=== PATIENT | female | born 1940 | race Caucasian/White ===

== ENCOUNTER 2021-07-29 19:48 | Inpatient (IN) | payer OTHER ==
[~2021-07-29] VITALS: Ht 170.2 cm; Wt 70.2 kg
[2021-07-29 19:53] VITALS: BP 79/47
[2021-07-29] MEDS ORDERED: NOREPINEPHRINE 8 MG/250ML KIT 250 ML IV ONE ×2 (20:00→20:02)
[2021-07-29] MEDS ORDERED: NOREPINEPHRINE 8 MG/250ML KIT 250 ML IV SCH (20:00)
[2021-07-29] MEDS ORDERED: PROPOFOL 100 ML IV SCH (20:00)
[2021-07-29] MEDS ORDERED: PROPOFOL 100 ML IV ONE (20:00)
[2021-07-29 20:23] LABS: Mean Corpuscular Volume 100.1 fL (80.0-100.0); White Blood Cell 7.7 10^3/uL (4.4-10.8)
[2021-07-29 20:24] LABS: Hematocrit 40.8 % (36.0-46.0); Hemoglobin 12.8 g/dL (12.2-16.2); Mean Corpuscular Hemoglobin 31.4 pg (28.0-32.0); Mean Corpuscular Hgb Conc. 31.4 g/dL (32.0-36.0); Red Blood Cells 4.07 10^6/uL (4.0-5.20); Red Cell Distribution Width 14.3 % (11.8-14.3)
[2021-07-29 20:28] LABS: Basophils % (manual) 0 (0.0-2.0); Blast Cells 0; Metamyelocytes % 0; Myelocytes % 0; Promyelocytes % 0; Reactive Lymphocytes 0
[2021-07-29 20:30] LABS: Albumin 2.1 g/dL (3.4-5.0); BUN/Creatinine Ratio 11.3; Calcium 8.6 mg/dL (8.5-10.1); Potassium 3.9 mmol/L (3.5-5.1)
[2021-07-29] MEDS: PROPOFOL 100 ML IV SCH (20:30)
[2021-07-29 20:36] LABS: Bilirubin, Total 0.4 mg/dL (0.2-1.0); Total Protein 6.1 g/dL (6.4-8.2)
[2021-07-29 21:25] VITALS: BP 79/47
[2021-07-29] MEDS ORDERED: SODIUM CHLORIDE 0.9% 1,000 ML IV ONE (22:00)
[2021-07-29] MEDS ORDERED: PIPERACILLIN-TAZOB 3.375GM 100 ML IV ONE (22:00)
[2021-07-29 22:12] VITALS: BP 113/53
[2021-07-29 22:16] LABS: Lactic Acid w/Reflex 11.2 mmol/L (0.4-2.0)
[2021-07-29 22:24] LABS: Band Neutrophils % (manual) 4; Eosinophils % (manual) 1 (0-7); Lymphocytes % (manual) 38 (10.0-50.0); Monocytes % (manual) 7 (0-12)
[2021-07-29] MEDS ORDERED: MORPHINE SULFATE INJECTION 2 MG/ML SYRG IV PRN (22:30)
[2021-07-29] MEDS ORDERED: SODIUM BICARBONATE 8.4 % INJ 50ML VIAL IV ONE ×2 (22:30→23:47)
[2021-07-29] MEDS ORDERED: SODIUM BICARBONATE 50ML VIAL 100 ML in SOD CHL 0.45% 1,000 ML IV SCH (22:30)
[2021-07-29] MEDS ORDERED: ALBUTEROL SULF HFA 90MCG INH 200DOSE IN PRN (22:30)
[2021-07-29] MEDS ORDERED: NITROGLYCERIN 0.4 MG SL TAB SL PRN (22:30)
[2021-07-29] MEDS: NOREPINEPHRINE 8 MG/250ML KIT 250 ML IV SCH (22:30)
[2021-07-29] MEDS: cefTRIAXone 1GM/50ML D5W 50 ML IV SCH (23:16)
[2021-07-29] MEDS: MIDAZOLAM DRIP 50 mg/50mL 50 ML IV SCH (23:21)
[2021-07-30] VITALS (11 sets, daily range): BP systolic 97–138; BP diastolic 62–76
[2021-07-30] MEDS ORDERED: IOHEXOL 350 MG/ML 100ML IJ ONE (00:17)
[2021-07-30] MEDS ORDERED: VANCOMYCIN 1GM/250ML 250 ML IV ONE (01:00)
[2021-07-30] MEDS: MIDAZOLAM DRIP 50 mg/50mL 50 ML IV SCH (03:16)
[2021-07-30] MEDS: NOREPINEPHRINE 8 MG/250ML KIT 250 ML IV SCH ×2 (03:29→21:25)
[2021-07-30] MEDS: AZITHROMYCIN 500MG/ 250ML 250 ML IV SCH ×2 (03:30→23:21)
[2021-07-30 05:51] LABS: Hematocrit 37.5 % (36.0-46.0); Hemoglobin 11.9 g/dL (12.2-16.2); Mean Corpuscular Hemoglobin 30.7 pg (28.0-32.0); Mean Corpuscular Hgb Conc. 31.7 g/dL (32.0-36.0); Mean Corpuscular Volume 96.7 fL (80.0-100.0); Red Blood Cells 3.88 10^6/uL (4.0-5.20); Red Cell Distribution Width 13.9 % (11.8-14.3); White Blood Cell 24.1 10^3/uL (4.4-10.8)
[2021-07-30 06:01] LABS: Basophils % (manual) 0 (0.0-2.0); Blast Cells 0; Eosinophils % (manual) 0 (0-7); Metamyelocytes % 0; Myelocytes % 0; Promyelocytes % 0; Reactive Lymphocytes 0
[2021-07-30] MEDS ORDERED: ENOXAPARIN SOD 100 MG/1 ML SYRINGE SC ONE (06:45)
[2021-07-30] MEDS ORDERED: SODIUM CHLORIDE 0.9% 1,000 ML IV SCH (06:45)
[2021-07-30 07:06] LABS: Urine WBC None Seen /hpf (0 - 5)
[2021-07-30 07:25] LABS: Urine Bacteria NONE SEEN /hpf (None Seen); Urine Blood 3+ /uL (Negative); Urine Mucus FEW (None Seen)
[2021-07-30 08:28] LABS: Albumin 1.6 g/dL (3.4-5.0); Calcium 7.1 mg/dL (8.5-10.1); Potassium 3.5 mmol/L (3.5-5.1)
[2021-07-30 08:33] LABS: BUN/Creatinine Ratio 14.5; Bilirubin, Total 1.2 mg/dL (0.2-1.0); Total Protein 5.2 g/dL (6.4-8.2)
[2021-07-30 09:06] LABS: Band Neutrophils % (manual) 16; Lymphocytes % (manual) 4 (10.0-50.0); Monocytes % (manual) 2 (0-12)
[2021-07-30] MEDS: CHOLECALCIFEROL (VITD3) 2,000 UNIT CAP/TAB PO SCH (10:00)
[2021-07-30] MEDS: ASCORBIC ACID 1,000 MG TAB PO SCH (10:00)
[2021-07-30] MEDS ORDERED: ENOXAPARIN SOD 40 MG/0.4 ML SYRINGE SC SCH (10:00)
[2021-07-30] MEDS: ASPirin 81 mg TAB PO SCH (11:30)
[2021-07-30] MEDS: PANTOPRAZOLE 40 MG/10 ML VIAL INJ IV SCH (11:32)
[2021-07-30] MEDS: DexAMETHasone SOD PHOS 10MG/1ML VIAL INJ IV SCH (11:32)
[2021-07-30] MEDS: ENOXAPARIN SOD 100 MG/1 ML SYRINGE SC SCH ×2 (18:29→22:42)
[2021-07-30] MEDS: FUROSEMIDE 20 MG/2 ML VIAL IV SCH (18:29)
[2021-07-30] MEDS: PROPOFOL 100 ML IV SCH (22:15)
[2021-07-30] MEDS: ATORVASTATIN 20 MG TAB PO SCH (22:42)
[2021-07-30] MEDS: cefTRIAXone 1GM/50ML D5W 50 ML IV SCH (23:20)
[2021-07-31] VITALS (9 sets, daily range): BP systolic 99–111; BP diastolic 44–64
[2021-07-31] MEDS: MIDAZOLAM DRIP 50 mg/50mL 50 ML IV SCH ×2 (01:00→19:56)
[2021-07-31 05:08] LABS: Basophils # (auto) 0 10 ^3/uL (0-0.2); Basophils % (auto) 0.2 % (0.0-2.0); Eosinophils # (auto) 0 10 ^3/uL (0-0.8); Hematocrit 31.1 % (36.0-46.0); Hemoglobin 10.5 g/dL (12.2-16.2); Lymphocytes # (auto) 0.7 10 ^3/uL (0.4-5.4); Lymphocytes % (auto) 3.6 % (10.0-50.0); Mean Corpuscular Hemoglobin 31.2 pg (28.0-32.0); Mean Corpuscular Hgb Conc. 33.8 g/dL (32.0-36.0); Mean Corpuscular Volume 92.5 fL (80.0-100.0); Monocytes # (auto) 1.2 10 ^3/uL (0-1.3); Monocytes % (auto) 6.6 % (0.0-12.0); Neutrophils # (auto) 16.2 10 ^3/uL (1.6-8.6); Neutrophils % (auto) 89.6 % (37.0-80.0); Red Blood Cells 3.36 10^6/uL (4.0-5.20); Red Cell Distribution Width 14.1 % (11.8-14.3); White Blood Cell 18.1 10^3/uL (4.4-10.8)
[2021-07-31] MEDS: FUROSEMIDE 20 MG/2 ML VIAL IV SCH (06:04)
[2021-07-31 06:54] LABS: Albumin 1.5 g/dL (3.4-5.0); Calcium 6.1 mg/dL (8.5-10.1); Potassium 3.1 mmol/L (3.5-5.1)
[2021-07-31 06:59] LABS: BUN/Creatinine Ratio 11.9; Bilirubin, Total 0.4 mg/dL (0.2-1.0); Total Protein 4.5 g/dL (6.4-8.2)
[2021-07-31] MEDS: PANTOPRAZOLE 40 MG/10 ML VIAL INJ IV SCH (10:00)
[2021-07-31] MEDS: DexAMETHasone SOD PHOS 10MG/1ML VIAL INJ IV SCH (10:00)
[2021-07-31] MEDS: ENOXAPARIN SOD 80 MG/0.8ML SYRINGE SC SCH (10:00)
[2021-07-31] MEDS: ASCORBIC ACID 1,000 MG TAB PO SCH (10:00)
[2021-07-31] MEDS: ASPirin 81 mg TAB PO SCH (10:00)
[2021-07-31] MEDS: CHOLECALCIFEROL (VITD3) 2,000 UNIT CAP/TAB PO SCH (10:00)
[2021-07-31] MEDS ORDERED: HYDR200T36 PO (11:38)
[2021-07-31] MEDS ORDERED: POM PO (11:38)
[2021-07-31] MEDS ORDERED: CALCIUM GLUC 1,000mg/50ml-NS 50 ML IV ONE (12:00)
[2021-07-31] MEDS: POTASSIUM CHL 20MEQ/100ML 100 ML IV SCH ×2 (12:00→15:00)
[2021-07-31] MEDS: LACTATED RINGER'S 1,000 ML IV SCH (13:15)
[2021-07-31] MEDS: NOREPINEPHRINE 8 MG/250ML KIT 250 ML IV SCH (22:15)
[2021-07-31] MEDS: PROPOFOL 100 ML IV SCH (22:15)
[2021-07-31] MEDS: cefTRIAXone 1GM/50ML D5W 50 ML IV SCH (23:03)
[2021-07-31] MEDS: ATORVASTATIN 20 MG TAB PO SCH (23:03)
[2021-07-31] MEDS: AZITHROMYCIN 500MG/ 250ML 250 ML IV SCH (23:03)
[2021-08-01] VITALS (17 sets, daily range): BP systolic 101–142; BP diastolic 55–77
[2021-08-01] MEDS: ALBUMIN 25% 100 ML IV SCH ×3 (01:01→15:00)
[2021-08-01] MEDS: MIDAZOLAM DRIP 50 mg/50mL 50 ML IV SCH ×2 (01:20→06:35)
[2021-08-01] MEDS: LACTATED RINGER'S 1,000 ML IV SCH ×2 (02:35→14:00)
[2021-08-01 05:56] LABS: Eosinophils # (auto) 0 10 ^3/uL (0-0.8); Lymphocytes # (auto) 0.3 10 ^3/uL (0.4-5.4); Lymphocytes % (auto) 2.9 % (10.0-50.0)
[2021-08-01 06:00] LABS: Basophils # (auto) 0 10 ^3/uL (0-0.2); Basophils % (auto) 0.4 % (0.0-2.0); Hematocrit 18.4 % (36.0-46.0); Mean Corpuscular Hemoglobin 32.7 pg (28.0-32.0); Mean Corpuscular Volume 91.1 fL (80.0-100.0); Monocytes # (auto) 0.4 10 ^3/uL (0-1.3); Monocytes % (auto) 4.1 % (0.0-12.0); Neutrophils # (auto) 8.9 10 ^3/uL (1.6-8.6); Neutrophils % (auto) 92.6 % (37.0-80.0); Red Blood Cells 2.02 10^6/uL (4.0-5.20); Red Cell Distribution Width 13.9 % (11.8-14.3); White Blood Cell 9.7 10^3/uL (4.4-10.8)
[2021-08-01 06:11] LABS: Albumin 1.8 g/dL (3.4-5.0); BUN/Creatinine Ratio 12.3; Calcium 6.1 mg/dL (8.5-10.1); Potassium 3.6 mmol/L (3.5-5.1)
[2021-08-01 06:13] LABS: Hemoglobin 6.6 g/dL (12.2-16.2)
[2021-08-01 06:14] LABS: Bilirubin, Total 0.4 mg/dL (0.2-1.0); Total Protein 4.4 g/dL (6.4-8.2)
[2021-08-01] MEDS: PANTOPRAZOLE 40 MG/10 ML VIAL INJ IV SCH (10:56)
[2021-08-01] MEDS: DexAMETHasone SOD PHOS 10MG/1ML VIAL INJ IV SCH (10:56)
[2021-08-01] MEDS: ASPirin 81 mg TAB PO SCH (10:57)
[2021-08-01] MEDS: ASCORBIC ACID 1,000 MG TAB PO SCH (10:58)
[2021-08-01] MEDS: ENOXAPARIN SOD 80 MG/0.8ML SYRINGE SC SCH (10:58)
[2021-08-01] MEDS: CHOLECALCIFEROL (VITD3) 2,000 UNIT CAP/TAB PO SCH (10:58)
[2021-08-01 15:11] LABS: Basophils # (auto) 0 10 ^3/uL (0-0.2); Eosinophils # (auto) 0 10 ^3/uL (0-0.8); Monocytes # (auto) 0.3 10 ^3/uL (0-1.3); Red Cell Distribution Width 14.2 % (11.8-14.3)
[2021-08-01 15:12] LABS: Basophils % (auto) 0.2 % (0.0-2.0); Hematocrit 22.4 % (36.0-46.0); Hemoglobin 7.8 g/dL (12.2-16.2); Lymphocytes # (auto) 0.2 10 ^3/uL (0.4-5.4); Lymphocytes % (auto) 2.6 % (10.0-50.0); Mean Corpuscular Hemoglobin 31.1 pg (28.0-32.0); Mean Corpuscular Hgb Conc. 34.6 g/dL (32.0-36.0); Mean Corpuscular Volume 90.1 fL (80.0-100.0); Monocytes % (auto) 3.4 % (0.0-12.0); Neutrophils # (auto) 8.7 10 ^3/uL (1.6-8.6); Neutrophils % (auto) 93.8 % (37.0-80.0); Nucleated Red Blood Cells % 0.3 %; Red Blood Cells 2.49 10^6/uL (4.0-5.20); White Blood Cell 9.3 10^3/uL (4.4-10.8)
[2021-08-01] MEDS ORDERED: FUROSEMIDE 100 MG/10ML VIAL IV ONE (16:15)
[2021-08-01] MEDS: NOREPINEPHRINE 8 MG/250ML KIT 250 ML IV SCH (22:15)
[2021-08-01] MEDS: PROPOFOL 100 ML IV SCH (22:15)
[2021-08-01] MEDS: ATORVASTATIN 20 MG TAB PO SCH (22:40)
[2021-08-01] MEDS: cefTRIAXone 1GM/50ML D5W 50 ML IV SCH (22:40)
[2021-08-01 23:10] LABS: INR 1.23 (0.9-1.15)
[2021-08-01] MEDS: AZITHROMYCIN 500MG/ 250ML 250 ML IV SCH (23:37)
[2021-08-02] VITALS (51 sets, daily range): BP systolic 92–141; BP diastolic 48–72
[2021-08-02] MEDS: MIDAZOLAM DRIP 50 mg/50mL 50 ML IV SCH (05:00)
[2021-08-02] MEDS: LACTATED RINGER'S 1,000 ML IV SCH ×2 (05:26→18:35)
[2021-08-02 07:53] LABS: Basophils # (auto) 0.1 10 ^3/uL (0-0.2); Eosinophils # (auto) 0 10 ^3/uL (0-0.8); Lymphocytes # (auto) 0.3 10 ^3/uL (0.4-5.4); Monocytes # (auto) 0.4 10 ^3/uL (0-1.3); Monocytes % (auto) 4.1 % (0.0-12.0); Neutrophils % (auto) 91.9 % (37.0-80.0)
[2021-08-02 07:55] LABS: Basophils % (auto) 0.8 % (0.0-2.0); Hematocrit 23.3 % (36.0-46.0); Hemoglobin 8.3 g/dL (12.2-16.2); Lymphocytes % (auto) 3.2 % (10.0-50.0); Mean Corpuscular Hemoglobin 31.8 pg (28.0-32.0); Mean Corpuscular Hgb Conc. 35.4 g/dL (32.0-36.0); Mean Corpuscular Volume 89.8 fL (80.0-100.0); Neutrophils # (auto) 9.7 10 ^3/uL (1.6-8.6); Red Cell Distribution Width 14.9 % (11.8-14.3); White Blood Cell 10.6 10^3/uL (4.4-10.8)
[2021-08-02 08:09] LABS: Albumin 2.3 g/dL (3.4-5.0); Calcium 6.7 mg/dL (8.5-10.1); Potassium 3.2 mmol/L (3.5-5.1)
[2021-08-02 08:18] LABS: BUN/Creatinine Ratio 14.2; Bilirubin, Total 0.5 mg/dL (0.2-1.0); CRP High Sensitivity 6.81 mg/dL (< 0.3); Total Protein 4.9 g/dL (6.4-8.2)
[2021-08-02] MEDS: ASPirin 81 mg TAB PO SCH (10:29)
[2021-08-02] MEDS: DexAMETHasone SOD PHOS 10MG/1ML VIAL INJ IV SCH (10:29)
[2021-08-02] MEDS: CHOLECALCIFEROL (VITD3) 2,000 UNIT CAP/TAB PO SCH (10:29)
[2021-08-02] MEDS: PANTOPRAZOLE 40 MG/10 ML VIAL INJ IV SCH (10:29)
[2021-08-02] MEDS: ASCORBIC ACID 1,000 MG TAB PO SCH (10:29)
[2021-08-02] MEDS: POTASSIUM CHL 20MEQ/100ML 100 ML IV SCH ×2 (15:06→17:26)
[2021-08-02] MEDS ORDERED: ESCI-34 PO (15:51)
[2021-08-02] MEDS: cefTRIAXone 1GM/50ML D5W 50 ML IV SCH (21:28)
[2021-08-02] MEDS: ATORVASTATIN 20 MG TAB PO SCH (21:28)
[2021-08-02] MEDS: NOREPINEPHRINE 8 MG/250ML KIT 250 ML IV SCH (22:15)
[2021-08-02] MEDS: PROPOFOL 100 ML IV SCH (22:15)
[2021-08-02] MEDS: AZITHROMYCIN 500MG/ 250ML 250 ML IV SCH (22:57)
[2021-08-03] VITALS (58 sets, daily range): BP systolic 94–150; BP diastolic 50–81
[2021-08-03] MEDS: ASPirin 81 mg TAB PO SCH (09:40)
[2021-08-03] MEDS: PANTOPRAZOLE 40 MG/10 ML VIAL INJ IV SCH (09:40)
[2021-08-03] MEDS: CHOLECALCIFEROL (VITD3) 2,000 UNIT CAP/TAB PO SCH (09:41)
[2021-08-03] MEDS: ASCORBIC ACID 1,000 MG TAB PO SCH (09:41)
[2021-08-03] MEDS: DexAMETHasone SOD PHOS 10MG/1ML VIAL INJ IV SCH (09:42)
[2021-08-03] MEDS ORDERED: POTASSIUM CHL 20MEQ/100ML 100 ML IV SCH (12:00)
[2021-08-03] MEDS ORDERED: FUROSEMIDE 40 MG/4 ML VIAL IV ONE (13:30)
[2021-08-03 14:37] LABS: Basophils # (auto) 0 10 ^3/uL (0-0.2); Eosinophils # (auto) 0 10 ^3/uL (0-0.8); Lymphocytes # (auto) 0.3 10 ^3/uL (0.4-5.4); Lymphocytes % (auto) 2.8 % (10.0-50.0); Monocytes # (auto) 0.4 10 ^3/uL (0-1.3)
[2021-08-03 14:39] LABS: Basophils % (auto) 0.2 % (0.0-2.0); Hematocrit 22.2 % (36.0-46.0); Hemoglobin 7.7 g/dL (12.2-16.2); Mean Corpuscular Hemoglobin 31.5 pg (28.0-32.0); Mean Corpuscular Hgb Conc. 34.9 g/dL (32.0-36.0); Mean Corpuscular Volume 90.2 fL (80.0-100.0); Monocytes % (auto) 4.4 % (0.0-12.0); Neutrophils % (auto) 92.6 % (37.0-80.0); Nucleated Red Blood Cells % 0.1 %; Red Blood Cells 2.46 10^6/uL (4.0-5.20); Red Cell Distribution Width 15.2 % (11.8-14.3); White Blood Cell 9.7 10^3/uL (4.4-10.8)
[2021-08-03 15:00] LABS: BUN/Creatinine Ratio 17.5; Calcium 6.8 mg/dL (8.5-10.1); Potassium 3.9 mmol/L (3.5-5.1)
[2021-08-03] MEDS ORDERED: CLINIMIX PER PHARMACY 0 ML IV SCH (16:00)
[2021-08-03] MEDS: LACTATED RINGER'S 1,000 ML IV SCH ×3 (17:15→21:15)
[2021-08-03] MEDS: InsuLIN REG 1unit/0.01ml Soln (100units/ml) SC SCH (18:00)
[2021-08-03] MEDS ORDERED: DEXTROSE (50%) 50ML SYRG IV SCH (18:00)
[2021-08-03] MEDS: ACCU-CHEK COMFORT CURVE STRIP VI SCH (18:13)
[2021-08-03] MEDS ORDERED: AMINO ACID INFUSION IN D10W 1,000 ML IV NR (20:00)
[2021-08-03] MEDS: ONDANSETRON HCL 4 MG/2 ML VIAL IV PRN (21:07)
[2021-08-03] MEDS: NOREPINEPHRINE 8 MG/250ML KIT 250 ML IV SCH (22:15)
[2021-08-03] MEDS: PROPOFOL 100 ML IV SCH (22:15)
[2021-08-03] MEDS: cefTRIAXone 1GM/50ML D5W 50 ML IV SCH (22:45)
[2021-08-03] MEDS: MIDAZOLAM DRIP 50 mg/50mL 50 ML IV SCH (23:15)
[2021-08-03] MEDS: ATORVASTATIN 20 MG TAB PO SCH (23:59)
[2021-08-04] VITALS (59 sets, daily range): BP systolic 101–153; BP diastolic 55–89
[2021-08-04] MEDS: ONDANSETRON HCL 4 MG/2 ML VIAL IV PRN (04:45)
[2021-08-04 04:59] LABS: Potassium 3.6 mmol/L (3.5-5.1)
[2021-08-04 05:09] LABS: Albumin 2.3 g/dL (3.4-5.0); BUN/Creatinine Ratio 17.4; Bilirubin, Total 0.5 mg/dL (0.2-1.0); Calcium 7.3 mg/dL (8.5-10.1); Magnesium 1.8 mg/dL (1.6-2.6); Phosphorus 2.7 mg/dL (2.5-4.90); Pre Albumin 14.4 mg/dL (20.0-40.0); Total Protein 5.4 g/dL (6.4-8.2)
[2021-08-04] MEDS: InsuLIN REG 1unit/0.01ml Soln (100units/ml) SC SCH ×5 (05:50→23:50)
[2021-08-04] MEDS: ACCU-CHEK COMFORT CURVE STRIP VI SCH ×5 (05:50→23:50)
[2021-08-04] MEDS: LACTATED RINGER'S 1,000 ML IV SCH ×2 (06:06→20:29)
[2021-08-04 07:08] LABS: Basophils # (auto) 0 10 ^3/uL (0-0.2); Basophils % (auto) 0.1 % (0.0-2.0); Eosinophils # (auto) 0 10 ^3/uL (0-0.8); Mean Corpuscular Hemoglobin 31.3 pg (28.0-32.0)
[2021-08-04 07:11] LABS: Hematocrit 23.9 % (36.0-46.0); Hemoglobin 8.2 g/dL (12.2-16.2); Lymphocytes # (auto) 0.6 10 ^3/uL (0.4-5.4); Lymphocytes % (auto) 3.3 % (10.0-50.0); Mean Corpuscular Hgb Conc. 34.4 g/dL (32.0-36.0); Mean Corpuscular Volume 91.1 fL (80.0-100.0); Monocytes # (auto) 1.8 10 ^3/uL (0-1.3); Monocytes % (auto) 9.1 % (0.0-12.0); Neutrophils # (auto) 17.1 10 ^3/uL (1.6-8.6); Neutrophils % (auto) 87.5 % (37.0-80.0); Red Blood Cells 2.62 10^6/uL (4.0-5.20); Red Cell Distribution Width 15.1 % (11.8-14.3); White Blood Cell 19.5 10^3/uL (4.4-10.8)
[2021-08-04] MEDS: ASPirin 81 mg TAB PO SCH (10:00)
[2021-08-04] MEDS: PANTOPRAZOLE 40 MG/10 ML VIAL INJ IV SCH (10:29)
[2021-08-04] MEDS: CHOLECALCIFEROL (VITD3) 2,000 UNIT CAP/TAB PO SCH (10:29)
[2021-08-04] MEDS: DexAMETHasone SOD PHOS 10MG/1ML VIAL INJ IV SCH (10:29)
[2021-08-04] MEDS: ASCORBIC ACID 1,000 MG TAB PO SCH (10:29)
[2021-08-04] MEDS ORDERED: LACTULOSE 20Gm/30ML SOLN PO PRN (15:15)
[2021-08-04] MEDS ORDERED: AMINO ACID INFUSION IN D10W 1,000 ML IV NR (20:00)
[2021-08-04] MEDS: PROPOFOL 100 ML IV SCH (22:15)
[2021-08-04] MEDS: NOREPINEPHRINE 8 MG/250ML KIT 250 ML IV SCH (22:15)
[2021-08-04] MEDS: cefTRIAXone 1GM/50ML D5W 50 ML IV SCH (22:20)
[2021-08-04] MEDS: ATORVASTATIN 20 MG TAB PO SCH (22:20)
[2021-08-04] MEDS: MIDAZOLAM DRIP 50 mg/50mL 50 ML IV SCH (23:15)
[2021-08-05] VITALS (82 sets, daily range): BP systolic 111–170; BP diastolic 52–86
[2021-08-05 04:34] LABS: Basophils # (auto) 0 10 ^3/uL (0-0.2); Basophils % (auto) 0.1 % (0.0-2.0); Eosinophils # (auto) 0 10 ^3/uL (0-0.8); Lymphocytes # (auto) 0.5 10 ^3/uL (0.4-5.4)
[2021-08-05 04:36] LABS: Hematocrit 18.7 % (36.0-46.0); Lymphocytes % (auto) 4.3 % (10.0-50.0); Mean Corpuscular Hgb Conc. 33.9 g/dL (32.0-36.0); Mean Corpuscular Volume 91.5 fL (80.0-100.0); Monocytes # (auto) 0.8 10 ^3/uL (0-1.3); Monocytes % (auto) 7.1 % (0.0-12.0); Neutrophils # (auto) 9.8 10 ^3/uL (1.6-8.6); Neutrophils % (auto) 88.5 % (37.0-80.0); Red Blood Cells 2.05 10^6/uL (4.0-5.20); Red Cell Distribution Width 14.9 % (11.8-14.3); White Blood Cell 11.1 10^3/uL (4.4-10.8)
[2021-08-05 04:47] LABS: Hemoglobin 6.3 g/dL (12.2-16.2)
[2021-08-05 04:55] LABS: Potassium 3.4 mmol/L (3.5-5.1)
[2021-08-05 05:06] LABS: BUN/Creatinine Ratio 23.6; Bilirubin, Total 0.5 mg/dL (0.2-1.0); Calcium 7.3 mg/dL (8.5-10.1); Magnesium 1.6 mg/dL (1.6-2.6); Phosphorus 2.8 mg/dL (2.5-4.90); Total Protein 4.9 g/dL (6.4-8.2)
[2021-08-05] MEDS: InsuLIN REG 1unit/0.01ml Soln (100units/ml) SC SCH ×4 (06:00→23:37)
[2021-08-05] MEDS: ACCU-CHEK COMFORT CURVE STRIP VI SCH ×4 (06:24→23:37)
[2021-08-05] MEDS: POTASSIUM CHL 20MEQ/100ML 100 ML IV SCH ×2 (08:51→10:02)
[2021-08-05] MEDS: ASPirin 81 mg TAB PO SCH (10:00)
[2021-08-05] MEDS: CHOLECALCIFEROL (VITD3) 2,000 UNIT CAP/TAB PO SCH (10:02)
[2021-08-05] MEDS: ASCORBIC ACID 1,000 MG TAB PO SCH (10:03)
[2021-08-05] MEDS: DexAMETHasone SOD PHOS 10MG/1ML VIAL INJ IV SCH (10:03)
[2021-08-05] MEDS: PANTOPRAZOLE 40 MG/10 ML VIAL INJ IV SCH (10:03)
[2021-08-05] MEDS ORDERED: ALBUMIN 25% 100 ML IV ONE (11:15)
[2021-08-05] MEDS ORDERED: POTASSIUM EFFERVESENT TAB 25 MEQ GT ONE (11:15)
[2021-08-05] MEDS: LACTATED RINGER'S 1,000 ML IV SCH (11:57)
[2021-08-05] MEDS ORDERED: FUROSEMIDE 100 MG/10ML VIAL IV ONE (15:45)
[2021-08-05] MEDS ORDERED: AMINO ACID INFUSION IN D10W 1,000 ML IV NR (20:00)
[2021-08-05] MEDS: ATORVASTATIN 20 MG TAB PO SCH (22:00)
[2021-08-05] MEDS: NOREPINEPHRINE 8 MG/250ML KIT 250 ML IV SCH (22:15)
[2021-08-05] MEDS: PROPOFOL 100 ML IV SCH (22:15)
[2021-08-05] MEDS: cefTRIAXone 1GM/50ML D5W 50 ML IV SCH (22:45)
[2021-08-05] MEDS: IPRATROPIUM BROM 0.5 MG/2.5ML INH SOL NEB PRN (22:58)
[2021-08-05] MEDS: ALBUTEROL SULF 2.5 MG/0.5ML(0.5%) NEB SOLN NEB PRN (22:58)
[2021-08-05] MEDS: MIDAZOLAM DRIP 50 mg/50mL 50 ML IV SCH (23:15)
[2021-08-06] VITALS (91 sets, daily range): BP systolic 107–186; BP diastolic 59–95
[2021-08-06] MEDS: LACTATED RINGER'S 1,000 ML IV SCH ×2 (02:35→16:15)
[2021-08-06 04:52] LABS: Albumin 2.7 g/dL (3.4-5.0); Calcium 7.8 mg/dL (8.5-10.1); Magnesium 1.5 mg/dL (1.6-2.6); Potassium 3.4 mmol/L (3.5-5.1)
[2021-08-06 04:55] LABS: BUN/Creatinine Ratio 28.9; Bilirubin, Total 0.9 mg/dL (0.2-1.0); Total Protein 5.7 g/dL (6.4-8.2)
[2021-08-06 05:00] LABS: Basophils # (auto) 0 10 ^3/uL (0-0.2); Basophils % (auto) 0.1 % (0.0-2.0); Eosinophils # (auto) 0 10 ^3/uL (0-0.8); Hemoglobin 9.9 g/dL (12.2-16.2); Lymphocytes # (auto) 0.6 10 ^3/uL (0.4-5.4); Lymphocytes % (auto) 4.9 % (10.0-50.0); Mean Corpuscular Hemoglobin 30.8 pg (28.0-32.0); Mean Corpuscular Hgb Conc. 34.3 g/dL (32.0-36.0); Mean Corpuscular Volume 89.9 fL (80.0-100.0); Monocytes # (auto) 0.7 10 ^3/uL (0-1.3); Monocytes % (auto) 5.7 % (0.0-12.0); Neutrophils # (auto) 10.7 10 ^3/uL (1.6-8.6); Neutrophils % (auto) 89.3 % (37.0-80.0); Red Blood Cells 3.23 10^6/uL (4.0-5.20); Red Cell Distribution Width 14.9 % (11.8-14.3)
[2021-08-06] MEDS: InsuLIN REG 1unit/0.01ml Soln (100units/ml) SC SCH ×4 (05:38→23:45)
[2021-08-06] MEDS: ACCU-CHEK COMFORT CURVE STRIP VI SCH ×4 (05:38→23:44)
[2021-08-06] MEDS: ASPirin 81 mg TAB PO SCH (08:54)
[2021-08-06] MEDS ORDERED: POTASSIUM PHOSPHATE 22 MEQ in SODIUM CHL 0.9% 100 ML IV ONE (09:00)
[2021-08-06] MEDS: MAGNESIUM SULFATE 1GM/100ML 100 ML IV SCH ×2 (09:00→15:00)
[2021-08-06] MEDS: PANTOPRAZOLE 40 MG/10 ML VIAL INJ IV SCH (09:53)
[2021-08-06] MEDS: ASCORBIC ACID 1,000 MG TAB PO SCH (09:53)
[2021-08-06] MEDS: DexAMETHasone SOD PHOS 10MG/1ML VIAL INJ IV SCH (09:53)
[2021-08-06] MEDS: CHOLECALCIFEROL (VITD3) 2,000 UNIT CAP/TAB PO SCH (09:53)
[2021-08-06] MEDS ORDERED: MAGNESIUM SULFATE 1GM/100ML 100 ML IV ONE (15:34)
[2021-08-06] MEDS ORDERED: AMINO ACID INFUSION IN D10W 1,000 ML IV NR (20:00)
[2021-08-06] MEDS: PROPOFOL 100 ML IV SCH (22:15)
[2021-08-06] MEDS: NOREPINEPHRINE 8 MG/250ML KIT 250 ML IV SCH (22:15)
[2021-08-06] MEDS: cefTRIAXone 1GM/50ML D5W 50 ML IV SCH (22:45)
[2021-08-06] MEDS: ATORVASTATIN 20 MG TAB PO SCH (22:45)
[2021-08-06] MEDS: MIDAZOLAM DRIP 50 mg/50mL 50 ML IV SCH (23:15)
[2021-08-07] VITALS (34 sets, daily range): BP systolic 106–172; BP diastolic 60–91
[2021-08-07 04:27] LABS: Basophils # (auto) 0 10 ^3/uL (0-0.2); Basophils % (auto) 0.1 % (0.0-2.0); Eosinophils # (auto) 0 10 ^3/uL (0-0.8); Hematocrit 29.4 % (36.0-46.0); Hemoglobin 10.1 g/dL (12.2-16.2); Lymphocytes # (auto) 0.3 10 ^3/uL (0.4-5.4); Lymphocytes % (auto) 2.8 % (10.0-50.0); Mean Corpuscular Hemoglobin 30.7 pg (28.0-32.0); Mean Corpuscular Hgb Conc. 34.4 g/dL (32.0-36.0); Mean Corpuscular Volume 89.2 fL (80.0-100.0); Monocytes # (auto) 0.7 10 ^3/uL (0-1.3); Monocytes % (auto) 5.8 % (0.0-12.0); Neutrophils # (auto) 11.2 10 ^3/uL (1.6-8.6); Neutrophils % (auto) 91.3 % (37.0-80.0); Red Blood Cells 3.29 10^6/uL (4.0-5.20); Red Cell Distribution Width 14.8 % (11.8-14.3); White Blood Cell 12.3 10^3/uL (4.4-10.8)
[2021-08-07 04:55] LABS: Albumin 2.4 g/dL (3.4-5.0); Calcium 7.6 mg/dL (8.5-10.1); Potassium 3.6 mmol/L (3.5-5.1)
[2021-08-07 04:59] LABS: BUN/Creatinine Ratio 34.4; Bilirubin, Total 0.8 mg/dL (0.2-1.0); Phosphorus 2.8 mg/dL (2.5-4.90); Total Protein 5.6 g/dL (6.4-8.2)
[2021-08-07] MEDS: InsuLIN REG 1unit/0.01ml Soln (100units/ml) SC SCH ×4 (05:56→23:33)
[2021-08-07] MEDS: ACCU-CHEK COMFORT CURVE STRIP VI SCH ×4 (05:56→23:32)
[2021-08-07] MEDS ORDERED: LIDOCAINE 2%HCL (LOCAL ANESTH.) INJ 20ML MDV ONE ×2 (08:33→13:57)
[2021-08-07] MEDS ORDERED: SODIUM CHLORIDE LOCK 0 ML ONE (08:33)
[2021-08-07] MEDS ORDERED: LIDOCAINE HCL 2% TOP JELLY 5ML TOP ONE (08:34)
[2021-08-07] MEDS ORDERED: fentaNYL CITRATE 100 MCG/2 ML VL ONE (08:34)
[2021-08-07] MEDS ORDERED: GLYCOPYRROLATE 0.2 MG/ML 1ML VIAL ONE (08:34)
[2021-08-07] MEDS ORDERED: EPINEPHrine HCL 1 MG/1 ML AMP ONE (08:34)
[2021-08-07] MEDS ORDERED: MIDAZOLAM HCL 5 MG/ML-1ML VIAL ONE (08:34)
[2021-08-07] MEDS: ASPirin 81 mg TAB PO SCH (08:54)
[2021-08-07] MEDS: DexAMETHasone SOD PHOS 10MG/1ML VIAL INJ IV SCH (09:37)
[2021-08-07] MEDS: ASCORBIC ACID 1,000 MG TAB PO SCH (09:37)
[2021-08-07] MEDS: CHOLECALCIFEROL (VITD3) 2,000 UNIT CAP/TAB PO SCH (09:37)
[2021-08-07] MEDS: PANTOPRAZOLE 40 MG/10 ML VIAL INJ IV SCH (09:37)
[2021-08-07] MEDS ORDERED: IODIXANOL 320MG/ML 100ML BTL IV ONE (13:57)
[2021-08-07] MEDS ORDERED: ACETYLCYSTEINE PO FOR APAP TOX 200 MG/ML ML ONE (14:30)
[2021-08-07] MEDS: LACTATED RINGER'S 1,000 ML IV SCH (16:15)
[2021-08-07] MEDS ORDERED: AMINO ACID INFUSION IN D10W 1,000 ML IV NR (20:00)
[2021-08-07] MEDS: NOREPINEPHRINE 8 MG/250ML KIT 250 ML IV SCH (22:15)
[2021-08-07] MEDS: PROPOFOL 100 ML IV SCH (22:15)
[2021-08-07] MEDS: ATORVASTATIN 20 MG TAB PO SCH (22:20)
[2021-08-07] MEDS: cefTRIAXone 1GM/50ML D5W 50 ML IV SCH (22:22)
[2021-08-07] MEDS: ACETYLCYSTEINE 20%(200MG/ML) SOL 4ML NEB SCH (22:39)
[2021-08-07] MEDS: ALBUTEROL SULF 2.5 MG/0.5ML(0.5%) NEB SOLN NEB PRN (22:40)
[2021-08-07] MEDS: IPRATROPIUM BROM 0.5 MG/2.5ML INH SOL NEB PRN (22:40)
[2021-08-07] MEDS: MIDAZOLAM DRIP 50 mg/50mL 50 ML IV SCH (23:15)
[2021-08-08] VITALS (31 sets, daily range): BP systolic 101–158; BP diastolic 50–103
[2021-08-08 04:47] LABS: Potassium 3.4 mmol/L (3.5-5.1)
[2021-08-08 04:53] LABS: BUN/Creatinine Ratio 35.6; Bilirubin, Total 0.6 mg/dL (0.2-1.0); Calcium 7.7 mg/dL (8.5-10.1); Magnesium 1.6 mg/dL (1.6-2.6); Phosphorus 2.5 mg/dL (2.5-4.90); Total Protein 5.2 g/dL (6.4-8.2)
[2021-08-08] MEDS: InsuLIN REG 1unit/0.01ml Soln (100units/ml) SC SCH ×3 (05:20→17:39)
[2021-08-08] MEDS: ACCU-CHEK COMFORT CURVE STRIP VI SCH ×3 (05:20→17:39)
[2021-08-08] MEDS: ALBUTEROL SULF 2.5 MG/0.5ML(0.5%) NEB SOLN NEB PRN ×3 (06:41→22:16)
[2021-08-08] MEDS: ACETYLCYSTEINE 20%(200MG/ML) SOL 4ML NEB SCH ×3 (06:41→22:16)
[2021-08-08] MEDS: ASPirin 81 mg TAB PO SCH (07:06)
[2021-08-08] MEDS: DexAMETHasone SOD PHOS 10MG/1ML VIAL INJ IV SCH (09:00)
[2021-08-08] MEDS: ASCORBIC ACID 1,000 MG TAB PO SCH (09:00)
[2021-08-08] MEDS: PANTOPRAZOLE 40 MG/10 ML VIAL INJ IV SCH (09:00)
[2021-08-08] MEDS: CHOLECALCIFEROL (VITD3) 2,000 UNIT CAP/TAB PO SCH (09:00)
[2021-08-08] MEDS: MAGNESIUM SULFATE 1GM/100ML 100 ML IV SCH ×2 (11:00→12:00)
[2021-08-08] MEDS ORDERED: POTASSIUM EFFERVESENT TAB 25 MEQ GT ONE (13:00)
[2021-08-08] MEDS ORDERED: AMINO ACID INFUSION IN D10W 1,000 ML IV NR (20:00)
[2021-08-08] MEDS: ATORVASTATIN 20 MG TAB PO SCH (20:40)
[2021-08-08] MEDS: NOREPINEPHRINE 8 MG/250ML KIT 250 ML IV SCH (22:15)
[2021-08-08] MEDS: PROPOFOL 100 ML IV SCH (22:15)
[2021-08-08] MEDS: IPRATROPIUM BROM 0.5 MG/2.5ML INH SOL NEB PRN (22:16)
[2021-08-08] MEDS: cefTRIAXone 1GM/50ML D5W 50 ML IV SCH (22:48)
[2021-08-08] MEDS: MIDAZOLAM DRIP 50 mg/50mL 50 ML IV SCH (23:15)
[2021-08-09] VITALS (35 sets, daily range): BP systolic 110–154; BP diastolic 56–83
[2021-08-09] MEDS: ACCU-CHEK COMFORT CURVE STRIP VI SCH ×4 (00:08→17:55)
[2021-08-09] MEDS: InsuLIN REG 1unit/0.01ml Soln (100units/ml) SC SCH ×4 (00:10→17:54)
[2021-08-09 04:45] LABS: Albumin 2.2 g/dL (3.4-5.0); BUN/Creatinine Ratio 35.9; Calcium 7.9 mg/dL (8.5-10.1)
[2021-08-09 04:47] LABS: Bilirubin, Total 0.7 mg/dL (0.2-1.0); Phosphorus 2.3 mg/dL (2.5-4.90); Total Protein 5.6 g/dL (6.4-8.2)
[2021-08-09] MEDS: ALBUTEROL SULF 2.5 MG/0.5ML(0.5%) NEB SOLN NEB PRN ×3 (06:23→18:35)
[2021-08-09] MEDS: ACETYLCYSTEINE 20%(200MG/ML) SOL 4ML NEB SCH ×3 (06:24→18:35)
[2021-08-09] MEDS: ASPirin 81 mg TAB PO SCH (07:07)
[2021-08-09 07:38] LABS: Basophils # (auto) 0 10 ^3/uL (0-0.2); Eosinophils # (auto) 0 10 ^3/uL (0-0.8); Hematocrit 29.8 % (36.0-46.0); Hemoglobin 10.2 g/dL (12.2-16.2); Lymphocytes # (auto) 0.4 10 ^3/uL (0.4-5.4); Lymphocytes % (auto) 2.4 % (10.0-50.0); Mean Corpuscular Hgb Conc. 34.4 g/dL (32.0-36.0); Mean Corpuscular Volume 90.1 fL (80.0-100.0); Monocytes # (auto) 0.9 10 ^3/uL (0-1.3); Monocytes % (auto) 5.6 % (0.0-12.0); Neutrophils # (auto) 14.5 10 ^3/uL (1.6-8.6); Red Cell Distribution Width 15.3 % (11.8-14.3); White Blood Cell 15.7 10^3/uL (4.4-10.8)
[2021-08-09] MEDS: ASCORBIC ACID 1,000 MG TAB PO SCH (09:56)
[2021-08-09] MEDS: CHOLECALCIFEROL (VITD3) 2,000 UNIT CAP/TAB PO SCH (09:56)
[2021-08-09] MEDS: PANTOPRAZOLE 40 MG/10 ML VIAL INJ IV SCH (09:56)
[2021-08-09] MEDS: DexAMETHasone SOD PHOS 10MG/1ML VIAL INJ IV SCH (09:56)
[2021-08-09] MEDS: IPRATROPIUM BROM 0.5 MG/2.5ML INH SOL NEB PRN (18:35)
[2021-08-09] MEDS ORDERED: AMINO ACID INFUSION IN D10W 1,000 ML IV NR (20:00)
[2021-08-09] MEDS: ATORVASTATIN 20 MG TAB PO SCH (20:00)
[2021-08-09] MEDS: NOREPINEPHRINE 8 MG/250ML KIT 250 ML IV SCH (20:27)
[2021-08-09] MEDS: PROPOFOL 100 ML IV SCH (20:27)
[2021-08-09] MEDS: MIDAZOLAM DRIP 50 mg/50mL 50 ML IV SCH (20:29)
[2021-08-09] MEDS: cefTRIAXone 1GM/50ML D5W 50 ML IV SCH (21:48)
[2021-08-10] VITALS (30 sets, daily range): BP systolic 104–157; BP diastolic 56–86
[2021-08-10] MEDS: InsuLIN REG 1unit/0.01ml Soln (100units/ml) SC SCH ×4 (00:25→18:14)
[2021-08-10] MEDS: ACCU-CHEK COMFORT CURVE STRIP VI SCH ×4 (00:25→18:14)
[2021-08-10 05:58] LABS: Potassium 3.8 mmol/L (3.5-5.1)
[2021-08-10 06:10] LABS: Albumin 2.1 g/dL (3.4-5.0); BUN/Creatinine Ratio 38.8; Bilirubin, Total 0.6 mg/dL (0.2-1.0); Calcium 7.7 mg/dL (8.5-10.1); Magnesium 2.1 mg/dL (1.6-2.6); Phosphorus 2.5 mg/dL (2.5-4.90); Total Protein 5.6 g/dL (6.4-8.2)
[2021-08-10] MEDS: ALBUTEROL SULF 2.5 MG/0.5ML(0.5%) NEB SOLN NEB PRN ×3 (06:15→21:52)
[2021-08-10] MEDS: IPRATROPIUM BROM 0.5 MG/2.5ML INH SOL NEB PRN ×3 (06:15→21:52)
[2021-08-10] MEDS: ACETYLCYSTEINE 20%(200MG/ML) SOL 4ML NEB SCH ×3 (06:16→21:52)
[2021-08-10] MEDS: ASPirin 81 mg TAB PO SCH (10:00)
[2021-08-10] MEDS: ASCORBIC ACID 1,000 MG TAB PO SCH (10:00)
[2021-08-10] MEDS: DexAMETHasone SOD PHOS 10MG/1ML VIAL INJ IV SCH (10:00)
[2021-08-10] MEDS: PANTOPRAZOLE 40 MG/10 ML VIAL INJ IV SCH (10:00)
[2021-08-10] MEDS: CHOLECALCIFEROL (VITD3) 2,000 UNIT CAP/TAB PO SCH (10:00)
[2021-08-10] MEDS: PROPOFOL 100 ML IV SCH (19:29)
[2021-08-10] MEDS: NOREPINEPHRINE 8 MG/250ML KIT 250 ML IV SCH (19:29)
[2021-08-10] MEDS: MIDAZOLAM DRIP 50 mg/50mL 50 ML IV SCH (19:30)
[2021-08-10] MEDS ORDERED: AMINO ACID INFUSION IN D10W 1,000 ML IV NR (20:00)
[2021-08-10] MEDS ORDERED: Vital AF 1.2 Cal 1 liter bottle NG SCH (20:00)
[2021-08-10] MEDS: cefTRIAXone 1GM/50ML D5W 50 ML IV SCH (20:21)
[2021-08-10] MEDS: ATORVASTATIN 20 MG TAB PO SCH (20:21)
[2021-08-11] VITALS (32 sets, daily range): BP systolic 95–158; BP diastolic 51–80
[2021-08-11] MEDS: ACCU-CHEK COMFORT CURVE STRIP VI SCH ×4 (00:08→18:00)
[2021-08-11] MEDS: InsuLIN REG 1unit/0.01ml Soln (100units/ml) SC SCH ×4 (00:14→18:00)
[2021-08-11 05:03] LABS: Basophils # (auto) 0 10 ^3/uL (0-0.2); Basophils % (auto) 0.2 % (0.0-2.0); Eosinophils # (auto) 0 10 ^3/uL (0-0.8); Hemoglobin 9.8 g/dL (12.2-16.2); Lymphocytes # (auto) 0.3 10 ^3/uL (0.4-5.4); Lymphocytes % (auto) 2.5 % (10.0-50.0); Mean Corpuscular Hemoglobin 30.9 pg (28.0-32.0); Mean Corpuscular Hgb Conc. 33.9 g/dL (32.0-36.0); Mean Corpuscular Volume 91.1 fL (80.0-100.0); Monocytes # (auto) 0.7 10 ^3/uL (0-1.3); Monocytes % (auto) 5.5 % (0.0-12.0); Neutrophils # (auto) 11.3 10 ^3/uL (1.6-8.6); Neutrophils % (auto) 91.8 % (37.0-80.0); Red Blood Cells 3.18 10^6/uL (4.0-5.20); Red Cell Distribution Width 15.7 % (11.8-14.3); White Blood Cell 12.3 10^3/uL (4.4-10.8)
[2021-08-11 05:39] LABS: Potassium 3.5 mmol/L (3.5-5.1)
[2021-08-11 05:44] LABS: Albumin 2.2 g/dL (3.4-5.0); BUN/Creatinine Ratio 36.5; Bilirubin, Total 0.7 mg/dL (0.2-1.0); Calcium 7.8 mg/dL (8.5-10.1); Phosphorus 2.5 mg/dL (2.5-4.90); Total Protein 5.7 g/dL (6.4-8.2)
[2021-08-11] MEDS ORDERED: POTASSIUM PHOSPHATE 22 MEQ in SODIUM CHL 0.9% 100 ML IV ONE (10:00)
[2021-08-11] MEDS: PANTOPRAZOLE 40 MG/10 ML VIAL INJ IV SCH (10:22)
[2021-08-11] MEDS: DexAMETHasone SOD PHOS 10MG/1ML VIAL INJ IV SCH (10:22)
[2021-08-11] MEDS: ASPirin 81 mg TAB PO SCH (10:22)
[2021-08-11] MEDS: ASCORBIC ACID 1,000 MG TAB PO SCH (10:23)
[2021-08-11] MEDS: CHOLECALCIFEROL (VITD3) 2,000 UNIT CAP/TAB PO SCH (10:23)
[2021-08-11] MEDS: NOREPINEPHRINE 8 MG/250ML KIT 250 ML IV SCH (19:35)
[2021-08-11] MEDS: PROPOFOL 100 ML IV SCH (19:35)
[2021-08-11] MEDS: MIDAZOLAM DRIP 50 mg/50mL 50 ML IV SCH (19:35)
[2021-08-11] MEDS ORDERED: AMINO ACID INFUSION IN D10W 1,000 ML IV NR (20:00)
[2021-08-11] MEDS: cefTRIAXone 1GM/50ML D5W 50 ML IV SCH (20:24)
[2021-08-11] MEDS: ATORVASTATIN 20 MG TAB PO SCH (20:24)
[2021-08-12] VITALS (48 sets, daily range): BP systolic 102–170; BP diastolic 57–101
[2021-08-12 04:41] LABS: Albumin 2.3 g/dL (3.4-5.0); Calcium 7.7 mg/dL (8.5-10.1); Magnesium 1.9 mg/dL (1.6-2.6); Potassium 3.9 mmol/L (3.5-5.1)
[2021-08-12 04:47] LABS: BUN/Creatinine Ratio 38.5; Bilirubin, Total 0.7 mg/dL (0.2-1.0); Pre Albumin 22.2 mg/dL (20.0-40.0); Total Protein 5.9 g/dL (6.4-8.2)
[2021-08-12] MEDS: ACCU-CHEK COMFORT CURVE STRIP VI SCH ×4 (05:39→18:00)
[2021-08-12] MEDS: InsuLIN REG 1unit/0.01ml Soln (100units/ml) SC SCH ×5 (05:40→23:59)
[2021-08-12] MEDS: PANTOPRAZOLE 40 MG/10 ML VIAL INJ IV SCH (10:27)
[2021-08-12] MEDS: ASPirin 81 mg TAB PO SCH (10:27)
[2021-08-12] MEDS: DexAMETHasone SOD PHOS 10MG/1ML VIAL INJ IV SCH (10:27)
[2021-08-12] MEDS: CHOLECALCIFEROL (VITD3) 2,000 UNIT CAP/TAB PO SCH (10:28)
[2021-08-12] MEDS: ASCORBIC ACID 1,000 MG TAB PO SCH (10:28)
[2021-08-12 15:03] LABS: Basophils # (auto) 0.1 10 ^3/uL (0-0.2); Basophils % (auto) 0.5 % (0.0-2.0); Eosinophils # (auto) 0 10 ^3/uL (0-0.8); Hematocrit 28.6 % (36.0-46.0); Hemoglobin 9.7 g/dL (12.2-16.2); Lymphocytes # (auto) 0.2 10 ^3/uL (0.4-5.4); Lymphocytes % (auto) 2.1 % (10.0-50.0); Mean Corpuscular Hemoglobin 31.1 pg (28.0-32.0); Mean Corpuscular Volume 91.7 fL (80.0-100.0); Monocytes # (auto) 0.3 10 ^3/uL (0-1.3); Monocytes % (auto) 2.4 % (0.0-12.0); Neutrophils # (auto) 10.2 10 ^3/uL (1.6-8.6); Red Blood Cells 3.12 10^6/uL (4.0-5.20); Red Cell Distribution Width 15.7 % (11.8-14.3); White Blood Cell 10.7 10^3/uL (4.4-10.8)
[2021-08-12] MEDS: PROPOFOL 100 ML IV SCH (19:18)
[2021-08-12] MEDS: NOREPINEPHRINE 8 MG/250ML KIT 250 ML IV SCH (19:18)
[2021-08-12] MEDS: MIDAZOLAM DRIP 50 mg/50mL 50 ML IV SCH (19:18)
[2021-08-12] MEDS: ATORVASTATIN 20 MG TAB PO SCH (19:19)
[2021-08-12] MEDS ORDERED: AMINO ACID INFUSION IN D10W 1,000 ML IV NR (20:00)
[2021-08-12] MEDS: cefTRIAXone 1GM/50ML D5W 50 ML IV SCH (21:19)
[2021-08-13] VITALS (45 sets, daily range): BP systolic 106–168; BP diastolic 51–86
[2021-08-13] MEDS: ACCU-CHEK COMFORT CURVE STRIP VI SCH ×4 (00:01→17:37)
[2021-08-13 04:03] LABS: Albumin 2.3 g/dL (3.4-5.0); BUN/Creatinine Ratio 43.2; Magnesium 1.5 mg/dL (1.6-2.6); Potassium 3.9 mmol/L (3.5-5.1)
[2021-08-13 04:06] LABS: Bilirubin, Total 0.7 mg/dL (0.2-1.0); Phosphorus 2.9 mg/dL (2.5-4.90)
[2021-08-13] MEDS: InsuLIN REG 1unit/0.01ml Soln (100units/ml) SC SCH ×3 (05:22→17:37)
[2021-08-13] MEDS: IPRATROPIUM BROM 0.5 MG/2.5ML INH SOL NEB PRN (06:00)
[2021-08-13] MEDS: ALBUTEROL SULF 2.5 MG/0.5ML(0.5%) NEB SOLN NEB PRN (06:00)
[2021-08-13] MEDS ORDERED: MAGNESIUM SULFATE 1GM/100ML 100 ML IV ONE (08:45)
[2021-08-13] MEDS: PANTOPRAZOLE 40 MG/10 ML VIAL INJ IV SCH (09:04)
[2021-08-13] MEDS: ASCORBIC ACID 1,000 MG TAB PO SCH (09:04)
[2021-08-13] MEDS: ASPirin 81 mg TAB PO SCH (09:04)
[2021-08-13] MEDS: CHOLECALCIFEROL (VITD3) 2,000 UNIT CAP/TAB PO SCH (09:04)
[2021-08-13] MEDS: DexAMETHasone SOD PHOS 10MG/1ML VIAL INJ IV SCH (09:05)
[2021-08-13] MEDS ORDERED: AMINO ACID INFUSION IN D10W 1,000 ML IV NR (20:00)
[2021-08-13] MEDS: ATORVASTATIN 20 MG TAB PO SCH (22:00)
[2021-08-14] VITALS (31 sets, daily range): BP systolic 84–170; BP diastolic 45–89
[2021-08-14 04:41] LABS: Potassium 3.7 mmol/L (3.5-5.1)
[2021-08-14 04:48] LABS: Albumin 2.3 g/dL (3.4-5.0); BUN/Creatinine Ratio 45.7; Bilirubin, Total 0.9 mg/dL (0.2-1.0); Phosphorus 2.6 mg/dL (2.5-4.90); Total Protein 5.8 g/dL (6.4-8.2)
[2021-08-14] MEDS: ACCU-CHEK COMFORT CURVE STRIP VI SCH ×4 (06:00→17:15)
[2021-08-14] MEDS: InsuLIN REG 1unit/0.01ml Soln (100units/ml) SC SCH ×4 (06:00→17:15)
[2021-08-14] MEDS: ASCORBIC ACID 1,000 MG TAB PO SCH (09:00)
[2021-08-14] MEDS: ASPirin 81 mg TAB PO SCH (09:00)
[2021-08-14] MEDS: PANTOPRAZOLE 40 MG/10 ML VIAL INJ IV SCH (09:00)
[2021-08-14] MEDS: DexAMETHasone SOD PHOS 10MG/1ML VIAL INJ IV SCH (09:00)
[2021-08-14] MEDS: CHOLECALCIFEROL (VITD3) 2,000 UNIT CAP/TAB PO SCH (09:01)
[2021-08-14] MEDS ORDERED: hydrALAZINE HCL 20 MG/ML VL IV PRN (10:15)
[2021-08-14] MEDS ORDERED: AMINO ACID INFUSION IN D10W 1,000 ML IV NR (20:00)
[2021-08-14] MEDS: PROPOFOL 100 ML IV SCH (22:15)
[2021-08-14] MEDS: ATORVASTATIN 20 MG TAB PO SCH (22:32)
[2021-08-15] VITALS (28 sets, daily range): BP systolic 87–149; BP diastolic 42–78
[2021-08-15] MEDS: InsuLIN REG 1unit/0.01ml Soln (100units/ml) SC SCH ×4 (06:00→23:29)
[2021-08-15] MEDS: ACCU-CHEK COMFORT CURVE STRIP VI SCH ×4 (06:00→23:27)
[2021-08-15 07:04] LABS: Albumin 2.5 g/dL (3.4-5.0); Calcium 8.1 mg/dL (8.5-10.1); Magnesium 1.9 mg/dL (1.6-2.6); Phosphorus 2.4 mg/dL (2.5-4.90); Potassium 3.5 mmol/L (3.5-5.1)
[2021-08-15 07:07] LABS: BUN/Creatinine Ratio 42.3; Bilirubin, Total 1.1 mg/dL (0.2-1.0); Total Protein 6.2 g/dL (6.4-8.2)
[2021-08-15 07:09] LABS: Basophils # (auto) 0 10 ^3/uL (0-0.2); Basophils % (auto) 0.5 % (0.0-2.0); Eosinophils # (auto) 0 10 ^3/uL (0-0.8); Hematocrit 28.6 % (36.0-46.0); Lymphocytes # (auto) 0.4 10 ^3/uL (0.4-5.4); Lymphocytes % (auto) 3.9 % (10.0-50.0); Mean Corpuscular Hemoglobin 31.8 pg (28.0-32.0); Mean Corpuscular Hgb Conc. 35.1 g/dL (32.0-36.0); Mean Corpuscular Volume 90.7 fL (80.0-100.0); Monocytes # (auto) 0.5 10 ^3/uL (0-1.3); Monocytes % (auto) 5.1 % (0.0-12.0); Neutrophils # (auto) 9.5 10 ^3/uL (1.6-8.6); Neutrophils % (auto) 90.5 % (37.0-80.0); Nucleated Red Blood Cells % 0.1 %; Red Blood Cells 3.15 10^6/uL (4.0-5.20); Red Cell Distribution Width 15.4 % (11.8-14.3); White Blood Cell 10.5 10^3/uL (4.4-10.8)
[2021-08-15] MEDS: PANTOPRAZOLE 40 MG/10 ML VIAL INJ IV SCH (11:25)
[2021-08-15] MEDS: DexAMETHasone SOD PHOS 10MG/1ML VIAL INJ IV SCH (11:26)
[2021-08-15] MEDS: CHOLECALCIFEROL (VITD3) 2,000 UNIT CAP/TAB PO SCH (11:28)
[2021-08-15] MEDS: ASPirin 81 mg TAB PO SCH (11:29)
[2021-08-15] MEDS: ASCORBIC ACID 1,000 MG TAB PO SCH (11:30)
[2021-08-15] MEDS ORDERED: POTASSIUM PHOSPHATE 22 MEQ in SODIUM CHL 0.9% 100 ML IV ONE (16:00)
[2021-08-15] MEDS: PROPOFOL 100 ML IV SCH ×2 (17:00→22:15)
[2021-08-15] MEDS: NOREPINEPHRINE 8 MG/250ML KIT 250 ML IV SCH ×2 (17:09→17:19)
[2021-08-15] MEDS ORDERED: AMINO ACID INFUSION IN D10W 1,000 ML IV NR (20:00)
[2021-08-15] MEDS: ATORVASTATIN 20 MG TAB PO SCH (22:43)
[2021-08-16] VITALS (29 sets, daily range): BP systolic 96–164; BP diastolic 46–82
[2021-08-16 04:56] LABS: Albumin 2.3 g/dL (3.4-5.0); BUN/Creatinine Ratio 47.6; Calcium 7.9 mg/dL (8.5-10.1); Magnesium 1.6 mg/dL (1.6-2.6); Phosphorus 3.6 mg/dL (2.5-4.90); Potassium 3.9 mmol/L (3.5-5.1)
[2021-08-16 04:59] LABS: Bilirubin, Total 1.3 mg/dL (0.2-1.0); Total Protein 5.9 g/dL (6.4-8.2)
[2021-08-16] MEDS: InsuLIN REG 1unit/0.01ml Soln (100units/ml) SC SCH ×4 (06:00→23:37)
[2021-08-16] MEDS: ACCU-CHEK COMFORT CURVE STRIP VI SCH ×4 (06:31→23:38)
[2021-08-16] MEDS: CHOLECALCIFEROL (VITD3) 2,000 UNIT CAP/TAB PO SCH (08:18)
[2021-08-16] MEDS: PANTOPRAZOLE 40 MG/10 ML VIAL INJ IV SCH (08:18)
[2021-08-16] MEDS: DexAMETHasone SOD PHOS 10MG/1ML VIAL INJ IV SCH (08:18)
[2021-08-16] MEDS: ASPirin 81 mg TAB PO SCH (08:19)
[2021-08-16] MEDS: ASCORBIC ACID 1,000 MG TAB PO SCH (08:19)
[2021-08-16] MEDS ORDERED: MAGNESIUM SULFATE 1GM/100ML 100 ML IV ONE (16:00)
[2021-08-16] MEDS ORDERED: AMINO ACID INFUSION IN D10W 1,000 ML IV NR (20:00)
[2021-08-16] MEDS: ATORVASTATIN 20 MG TAB PO SCH (22:04)
[2021-08-16] MEDS: NOREPINEPHRINE 8 MG/250ML KIT 250 ML IV SCH (22:05)
[2021-08-16] MEDS: PROPOFOL 100 ML IV SCH (22:05)
[2021-08-17] VITALS (28 sets, daily range): BP systolic 108–159; BP diastolic 55–87
[2021-08-17 04:43] LABS: Albumin 2.4 g/dL (3.4-5.0); Calcium 7.9 mg/dL (8.5-10.1); Magnesium 1.9 mg/dL (1.6-2.6); Potassium 3.5 mmol/L (3.5-5.1)
[2021-08-17 04:51] LABS: BUN/Creatinine Ratio 42.6; Bilirubin, Total 1.1 mg/dL (0.2-1.0); CRP High Sensitivity 1.32 mg/dL (< 0.3); Phosphorus 2.3 mg/dL (2.5-4.90); Total Protein 5.9 g/dL (6.4-8.2)
[2021-08-17] MEDS: InsuLIN REG 1unit/0.01ml Soln (100units/ml) SC SCH ×2 (06:00→12:00)
[2021-08-17] MEDS: ACCU-CHEK COMFORT CURVE STRIP VI SCH ×2 (06:18→12:00)
[2021-08-17] MEDS ORDERED: POTASSIUM PHOSPHATE 22 MEQ in SODIUM CHL 0.9% 100 ML IV ONE (09:00)
[2021-08-17] MEDS: DexAMETHasone SOD PHOS 10MG/1ML VIAL INJ IV SCH (09:36)
[2021-08-17] MEDS: ASCORBIC ACID 1,000 MG TAB PO SCH (09:37)
[2021-08-17] MEDS: CHOLECALCIFEROL (VITD3) 2,000 UNIT CAP/TAB PO SCH (09:37)
[2021-08-17] MEDS: PANTOPRAZOLE 40 MG/10 ML VIAL INJ IV SCH (09:37)
[2021-08-17] MEDS: ASPirin 81 mg TAB PO SCH (09:37)
[2021-08-17] MEDS ORDERED: LORazepam 2MG/ML-1ML VIAL IV PRN (14:45)
[2021-08-17] MEDS: MORPHINE SULFATE INJECTION 2 MG/ML SYRG IV PRN (16:33)
[2021-08-17] MEDS ORDERED: AMINO ACID INFUSION IN D10W 1,000 ML IV NR (20:00)
[2021-08-18 05:00] VITALS: BP 108/61
[2021-08-18 10:13] VITALS: BP 124/80
[2021-08-18 13:31] VITALS: BP 128/74
[2021-08-18 17:00] VITALS: BP 105/53
[2021-08-18] MEDS: MORPHINE SULFATE INJECTION 2 MG/ML SYRG IV PRN (19:00)
[2021-08-18 22:00] VITALS: BP 115/67
[2021-08-19 05:00] VITALS: BP 110/63
[2021-08-19 09:00] VITALS: BP 127/64
[2021-08-19 10:47] VITALS: BP 127/64
[2021-08-19 13:00] VITALS: BP 131/74
== END 2021-08-19 14:32 | disposition hospice, home (50) | DRG 870 ==
LOC: EDBD 19:48 → ER 19:53 → TELE 22:30 → ICU WEST 08-02 12:30 → TELE-EAST 08-17 21:24
PROVIDERS: ADMIT Nurse Practitioner; ATTEND Internal Medicine
PROC: 5A12012 Performance of Cardiac Output, Single, Manual (ICD-10-PCS; 2021-07-29)
PROC: 5A1935Z Respiratory Ventilation, Less than 24 Consecutive Hours (ICD-10-PCS; 2021-07-29)
PROC: 0BH17EZ Insertion of Endotracheal Airway into Trachea, Via Natural or Artificial Opening (ICD-10-PCS; 2021-07-29)
PROC: 5A1955Z Respiratory Ventilation, Greater than 96 Consecutive Hours (ICD-10-PCS; principal; 2021-07-30)
PROC: 06HM33Z Insertion of Infusion Device into Right Femoral Vein, Percutaneous Approach (ICD-10-PCS; 2021-07-30)
PROC: 0BH17EZ Insertion of Endotracheal Airway into Trachea, Via Natural or Artificial Opening (ICD-10-PCS; 2021-07-30)
PROC: 30233N1 Transfusion of Nonautologous Red Blood Cells into Peripheral Vein, Percutaneous Approach (ICD-10-PCS; 2021-08-01)
PROC: 0BC28ZZ Extirpation of Matter from Carina, Via Natural or Artificial Opening Endoscopic (ICD-10-PCS; 2021-08-07)
PROC: 06H03DZ Insertion of Intraluminal Device into Inferior Vena Cava, Percutaneous Approach (ICD-10-PCS; 2021-08-07)
PROC: B5191ZZ Fluoroscopy of Inferior Vena Cava using Low Osmolar Contrast (ICD-10-PCS; 2021-08-07)
PROC: 0BJ08ZZ Inspection of Tracheobronchial Tree, Via Natural or Artificial Opening Endoscopic (ICD-10-PCS; 2021-08-07)
PROC: 5A09357 Assistance with Respiratory Ventilation, Less than 24 Consecutive Hours, Continuous Positive Airway Pressure (ICD-10-PCS; 2021-08-14)
DX: A41.89 Other specified sepsis (principal); K72.00 Acute and subacute hepatic failure without coma; I21.4 Non-ST elevation (NSTEMI) myocardial infarction; U07.1 COVID-19; I46.9 Cardiac arrest, cause unspecified; R65.21 Severe sepsis with septic shock; E43 Unspecified severe protein-calorie malnutrition; J12.82 Pneumonia due to coronavirus disease 2019; I26.99 Other pulmonary embolism without acute cor pulmonale; J96.01 Acute respiratory failure with hypoxia; G92.8 Other toxic encephalopathy; J98.11 Atelectasis; S37.812A Contusion of adrenal gland, initial encounter; N17.9 Acute kidney failure, unspecified; G93.1 Anoxic brain damage, not elsewhere classified; Z99.11 Dependence on respirator [ventilator] status; S37.012A Minor contusion of left kidney, initial encounter; D64.9 Anemia, unspecified; I27.20 Pulmonary hypertension, unspecified; K59.00 Constipation, unspecified; M32.9 Systemic lupus erythematosus, unspecified; E87.6 Hypokalemia; E83.51 Hypocalcemia; G31.9 Degenerative disease of nervous system, unspecified; R13.10 Dysphagia, unspecified; R79.89 Other specified abnormal findings of blood chemistry; E88.09 Other disorders of plasma-protein metabolism, not elsewhere classified; E11.22 Type 2 diabetes mellitus with diabetic chronic kidney disease; I12.9 Hypertensive chronic kidney disease with stage 1 through stage 4 chronic kidney disease, or unspecified chronic kidney disease; N18.9 Chronic kidney disease, unspecified; E83.42 Hypomagnesemia; E83.39 Other disorders of phosphorus metabolism; X58.XXXA Exposure to other specified factors, initial encounter; S30.1XXA Contusion of abdominal wall, initial encounter; Z66 Do not resuscitate; Z88.1 Allergy status to other antibiotic agents; Z88.5 Allergy status to narcotic agent; Y99.8 Other external cause status; Y92.89 Other specified places as the place of occurrence of the external cause; Y93.89 Activity, other specified; Z51.5 Encounter for palliative care; Z79.82 Long term (current) use of aspirin; Z79.899 Other long term (current) drug therapy; Z80.3 Family history of malignant neoplasm of breast; Z80.41 Family history of malignant neoplasm of ovary; Z82.0 Family history of epilepsy and other diseases of the nervous system; Z82.3 Family history of stroke; Z82.49 Family history of ischemic heart disease and other diseases of the circulatory system; Z83.3 Family history of diabetes mellitus; Z86.718 Personal history of other venous thrombosis and embolism; Z86.73 Personal history of transient ischemic attack (TIA), and cerebral infarction without residual deficits; Z90.710 Acquired absence of both cervix and uterus; Z95.828 Presence of other vascular implants and grafts
CPT/HCPCS: 31645; 36415; 36600; 37191; 70450; 71045; 71250; 71275; 74176; 75825; 76705; 76942; 80048; 80053; 81001; 82024; 82040; 82088; 82533; 82607; 82728; 82746; 82805; 82962; 83036; 83605; 83615; 83735; 83835; 83880; 84100; 84244; 84443; 84478; 84484; 85007; 85025; 85027; 85379; 85610; 86141; 86850; 86900; 86901; 86920; 87040; 87070; 87081; 87086; 87205; 87426; 93005; 93306; 93970; 94002; 94003; 94640; 94668; 95819; 96365; 96367; 96375; 99152; 99153; 99291; A4618; C9113; G0378; J0171; J0696; J1100; J1815; J2250; J2405; J2543; J2704; J3480; P9047; Q9967